=== PATIENT | male | born 1995 | race African-American/Black ===

== ENCOUNTER 2021-07-23 15:45 | Emergency (ER) | payer OTHER ==
[2021-07-23 16:07] LABS: BASOPHIL 0.4 % (0-2); EOSINOPHIL 1.6 % (0-5); HCT 41.3 % (42.0-52.0); HGB 13.6 g/dl (13.2-18.0); LYMPHOCYTE 25.2 % (15-48); MCH 27.1 pg (25.0-31.0); MCHC 32.9 g/dL (32.0-36.0); MCV 82.4 fL (78.0-100.0); MONOCYTE 8.8 % (0-12); NEUTROPHIL 63.9 % (41-80); NRBC 0; PLT 194 K/uL (150-400); RBC 5.01 M/uL (4.70-6.00); RDW 14.5 % (11.5-14.0); WBC 7.1 K/uL (4.0-10.5)
[2021-07-23 16:17] LABS: INR 1.22 (0.9-1.2); PROTHROMBIN TIME 14.8 SECONDS (11.8-13.4); PTT 28.9 SECONDS (24.4-34.7)
[2021-07-23 16:24] LABS: ALBUMIN 3.7 g/dL (3.4-5.0); BILIRUBIN - TOTAL 0.7 mg/dL (0.2-1.0); BUN/CREAT RATIO (CALC) 11.7 RATIO; CREATININE 1.11 mg/dL (0.67-1.17); GLOBULIN (CALCULATION) 3.1 g/dL; POTASSIUM 3.7 mmol/L (3.5-5.1); TOTAL PROTEIN 6.8 g/dL (6.4-8.2)
[2021-07-23 17:30] LABS: BILIRUBIN 1+ mg/dL (NEGATIVE); BLOOD TRACE-INTACT Ery/uL (NEGATIVE); CLARITY CLEAR (CLEAR); COLOR YELLOW (YELLOW); GLUCOSE (U) NORMAL (NORMAL); LEUKOCYTES NEGATIVE Leu/uL (NEGATIVE); NITRITE NEGATIVE (NEGATIVE); PROTEIN NEGATIVE (NEGATIVE); SPECIFIC GRAVITY >=1.030 (1.001-1.030)
[2021-07-23 17:40] LABS: AMPHETAMINES POSITIVE (NEGATIVE); BARBITURATES NEGATIVE (NEGATIVE); ECSTASY (MDMA) POSITIVE (NEGATIVE); MARIJUANA (THC) POSITIVE (NEGATIVE); METHADONE NEGATIVE (NEGATIVE); OPIATES NEGATIVE (NEGATIVE)
[2021-07-23 17:41] LABS: BACTERIA 2+; OXYCODONE NEGATIVE (NEGATIVE); URINARY WBC TNTC
[2021-07-23 17:42] LABS: MUCOUS LARGE
[2021-07-23 18:45] LABS: CORONAVIRUS 2019 SARS-COV-2 NEGATIVE (NEGATIVE); INFLUENZA A NAA NEGATIVE (NEGATIVE)
[2021-07-24] MEDS ORDERED: ROCEPHIN500 MG IM (17:44)
[2021-07-24] MEDS ORDERED: VIBRAMYCIN100 MG PO (17:44)
== END 2021-07-24 18:21 | disposition home or self-care (01) ==
LOC: FER 15:45
PROVIDERS: Internal Medicine
DX: R07.89 Other chest pain (principal); F15.10 Other stimulant abuse, uncomplicated; F19.10 Other psychoactive substance abuse, uncomplicated; F14.10 Cocaine abuse, uncomplicated; F17.210 Nicotine dependence, cigarettes, uncomplicated; Z20.822 Contact with and (suspected) exposure to COVID-19
CPT/HCPCS: 36415; 71045; 80053; 80305; 81001; 83690; 84484; 85025; 85610; 85730; 93005; J2060; U0002